=== PATIENT | male | born 1975 | race African-American/Black ===

== ENCOUNTER 2019-08-12 13:11 | Emergency (ER) | payer MEDICAID ==
[~2019-08-12] VITALS: Ht 165.1 cm; Wt 66.4 kg
[~2019-08-12 13:11] MED LIST: prilosec
--- NOTE | 2019-08-12 13:27 | NUR ---
PT AMBULATED BACK TO ROOM. WITH C/O SHORTNESS OF BREATH, DIZZINESS, AND FEELING "HOT" SINCE 830-9AM TODAY. WORRIED MIGHT HAVE COVID-19
--- NOTE | 2019-08-12 14:10 | NUR ---
pt connected to monitors.
[2019-08-12 14:22] LABS: ANION GAP 9 mmol/L (5-15); CALCIUM 9.6 mg/dL (8.5-10.1); CHLORIDE 106 mmol/L (98-107); CREATININE 1.79 mg/dL (0.7-1.3)
[2019-08-12 14:35] LABS: BASOPHILS # (AUTO) 0.03 x10^3/uL (0-0.1); BASOPHILS % (AUTO) 0 % (0-1); EOSINOPHILS # (AUTO) 0.07 x10^3/uL (0-0.4); EOSINOPHILS % (AUTO) 1 % (1-7); LYMPHOCYTES # (AUTO) 2.29 x10^3/uL (1-3.4); LYMPHOCYTES % (AUTO) 23 % (22-44); MD NO; MEAN CORPUSCULAR HEMOGLOBIN 29.1 pg (27.5-34.5); MEAN CORPUSCULAR HGB CONC 32.5 g/dL (33.2-36.2); MEAN CORPUSCULAR VOLUME 89.5 fL (81-97); MEAN PLATELET VOLUME 8.1 fL (7.4-10.4); MONOCYTES # (AUTO) 1.17 x10^3/uL (0.2-0.8); MONOCYTES % (AUTO) 12 % (2-9); NEUTROPHILS # (AUTO) 6.58 x10^3/uL (1.8-6.8); NEUTROPHILS % (AUTO) 65 % (42-75); PLATELET COUNT 414 x10^3/uL (130-400); RED BLOOD COUNT 5.35 x10^6/uL (4.38-5.82); RED CELL DISTRIBUTION WIDTH 13.4 % (9.4-14.8)
[2019-08-12 14:55] VITALS: BP 113/82
--- NOTE | 2019-08-12 15:24 | NUR ---
Patient given discharge instructions and they have confirmed that they understand the instructions. Patient ambulatory with steady gait. pt left ED in no distress.
== END 2019-08-12 15:26 | disposition home or self-care (01) ==
LOC: ED 13:29
DX: R55 Syncope and collapse (principal); R00.0 Tachycardia, unspecified; E86.0 Dehydration; N17.9 Acute kidney failure, unspecified; I51.7 Cardiomegaly; I49.3 Ventricular premature depolarization; R94.31 Abnormal electrocardiogram [ECG] [EKG]; F17.200 Nicotine dependence, unspecified, uncomplicated
CPT/HCPCS: 36415; 71045; 80048; 82040; 85025; 85379; 93005; 99285